=== PATIENT | male | born 1990 | race Caucasian/White ===

== ENCOUNTER 2022-08-29 18:03 | Emergency (ER) | payer OTHER ==
[~2022-08-29] VITALS: Ht 185.4 cm; Wt 81.7 kg
--- NOTE | ~2022-08-29 | EKG ---
[facility] [address] [place], [place] [address] Draft EK completed, results pending confirmation PATIENT NAME: SWAPNA CORDON Electrocardiogram DATE OF : 86 PHYSICIAN: PRELIMINARY REPORT #: [id number] REPORT IS CONFIDENTIAL AND NOT TO BE RELEASED WITHOUT AUTHORIZATION
[2022-08-29] MEDS ORDERED: NORVASC10 MG PO (18:24)
[2022-08-29] MEDS ORDERED: CYCLOBENZAPRINE10 MG PO (20:08)
[2022-08-29 20:21] VITALS: BP 115/82
== END 2022-08-29 20:23 | disposition home or self-care (01) ==
LOC: ED 18:03
DX: R07.89 Other chest pain (principal); I25.2 Old myocardial infarction; Z87.891 Personal history of nicotine dependence; Z88.1 Allergy status to other antibiotic agents; Z79.899 Other long term (current) drug therapy
CPT/HCPCS: 36415; 71045; 80053; 83735; 84484; 85025; 93005; 93010; J1885